=== PATIENT | male | born 1940 | race African-American/Black ===

== ENCOUNTER 2017-02-02 08:12 | Inpatient (IN) | payer MEDICARE, MEDICAID ==
[~2017-02-02] VITALS: Ht 180.3 cm; Wt 95.3 kg
[~2017-02-02 08:12] MED LIST: AMLO5TAB88; ATEN50TA; ATOR20TA; CLIN300C11; CLON0.2T PO; FURO40TA5; GLIM4TAB2 PO; LEVVL SQ; LOSA100T14 PO; METF500T3; OMEP20TA2
[2017-02-02] MEDS ORDERED: ONDANSETRON HCL 4MG/2ML VIAL IV STA (08:34)
[2017-02-02] MEDS ORDERED: SODIUM CHLORIDE 0.9% 1,000 ML IV ONE (08:34)
[2017-02-02] MEDS ORDERED: PANTOPRAZOLE 80 MG in SODIUM CHLORIDE 0.9% 100 ML IV STA (08:34)
[2017-02-02] MEDS ORDERED: PANTOPRAZOLE SODIUM 40 MG/VIAL IV STA (08:34)
[2017-02-02 09:02] LABS: BASOPHILS % 0.1 % (0.0-2.0); HEMATOCRIT. 42.3 % (42.0-52.0); LYMPHOCYTES % 7.4 % (20.0-50.0); MEAN CORPUSCULAR HEMOGLOBIN 30.8 pg (28.0-32.0); MEAN CORPUSCULAR VOLUME 92.9 fL (80.0-94.0); NEUTROPHILS % 88.5 % (40.0-76.0); PLATELET 155 x1000/uL (130-400); RED BLOOD CELL COUNT 4.56 mill/uL (4.7-6.1); RED CELL DISTRIBUTION WIDTH 15.2 % (11.6-14.6)
[2017-02-02 09:10] LABS: CHLORIDE 93 mEq/L (98-107)
[2017-02-02 09:12] LABS: INR 1.3; PARTIAL THROMBOPLASTIN TIME 25.4 sec (23.4-31.0); PROTHROMBIN TIME 13.3 sec (9.4-11.6)
[2017-02-02 09:22] LABS: CARBON DIOXIDE 31 mEq/L (21-32); ETHANOL BLOOD < 10 mg/dL; TROPONIN I 0.04 ng/mL (0.00-0.04)
[2017-02-02 09:37] LABS: *AMPHETAMINES SCREEN URINE NEGATIVE (NEGATIVE); *BARBITURATES SCREEN URINE NEGATIVE (NEGATIVE); *BENZODIAZEPINES SCREEN URINE NEGATIVE (NEGATIVE); *COCAINE SCREEN URINE NEGATIVE (NEGATIVE); CANNABINOID URINE SCREEN NEGATIVE (NEGATIVE); METHADONE URINE SCREEN NEGATIVE (NEGATIVE); OPIATES URINE SCREEN NEGATIVE (NEGATIVE); PHENCYCLIDINE URINE SCREEN NEGATIVE (NEGATIVE)
[2017-02-02] MEDS ORDERED: CLONIDINE 0.1MG TABLET PO ONE (11:30)
[2017-02-02 12:30] VITALS: BP 162/59
[2017-02-02 12:45] VITALS: BP 162/59
[2017-02-02] MEDS ORDERED: DEXTROSE 50% WATER 50ML SYRINGE IV PRN (15:15)
[2017-02-02] MEDS: ONDANSETRON HCL 4MG/2ML VIAL IV PRN (15:59)
[2017-02-02 16:00] VITALS: BP 158/62
[2017-02-02] MEDS: BLOOD SUGAR DIAGNOSTIC STRIP TEST SCH ×2 (17:20→21:20)
[2017-02-02] MEDS: INSULIN LISPRO 100 UNITS/ML SUBCUT SCH ×2 (18:09→21:26)
[2017-02-02] MEDS: METFORMIN HCL 500MG TABLET PO SCH (18:09)
[2017-02-02 20:00] VITALS: BP 134/52
[2017-02-02 20:10] LABS: CLARITY URINE CLEAR (CLEAR); COLOR URINE YELLOW (YELLOW); GLUCOSE URINE 3+ (NEGATIVE); KETONES URINE 3+ (NEGATIVE); LEUKOCYTE ESTERASE URINE NEGATIVE (NEGATIVE); NITRITE URINE NEGATIVE (NEGATIVE); OCCULT BLOOD URINE 1+ (NEGATIVE); PROTEIN URINE 3+ (NEGATIVE); SPECIFIC GRAVITY URINE 1.024 (1.005-1.030)
[2017-02-02] MEDS ORDERED: POTASSIUM CHLORIDE 20MEQ TABLET SR PO NR (21:02)
[2017-02-02] MEDS: ATORVASTATIN CALCIUM 20MG TABLET PO SCH (21:10)
[2017-02-02] MEDS: CARVEDILOL 12.5MG TABLET PO SCH (21:10)
[2017-02-02] MEDS: PANTOPRAZOLE SODIUM 40 MG/VIAL IV SCH (21:10)
[2017-02-02] MEDS: AMLODIPINE 10MG TABLET PO SCH (21:39)
[2017-02-02] MEDS ORDERED: MAGNESIUM 4 G PREMIX 100 ML IV NR (23:00)
[2017-02-03] VITALS (8 sets, daily range): BP systolic 104–189; BP diastolic 67–88
[2017-02-03] MEDS: BLOOD SUGAR DIAGNOSTIC STRIP TEST SCH ×4 (06:26→21:36)
[2017-02-03 07:06] LABS: INR 1.2; PARTIAL THROMBOPLASTIN TIME 26.8 sec (23.4-31.0)
[2017-02-03 07:16] LABS: BASOPHILS % 0.1 % (0.0-2.0); HEMATOCRIT. 41.1 % (42.0-52.0); HEMOGLOBIN. 13.7 g/dL (14.0-18.0); LYMPHOCYTES % 9.4 % (20.0-50.0); MEAN CORPUSCULAR HEMOGLOBIN 31.1 pg (28.0-32.0); MEAN CORPUSCULAR VOLUME 93.3 fL (80.0-94.0); MEAN PLATELET VOLUME 10.5 fl (7.4-10.4); MONOCYTES % 6.3 % (2.0-8.0); NEUTROPHILS % 84.2 % (40.0-76.0); PLATELET 145 x1000/uL (130-400); RED BLOOD CELL COUNT 4.41 mill/uL (4.7-6.1); RED CELL DISTRIBUTION WIDTH 15.5 % (11.6-14.6)
[2017-02-03] MEDS ORDERED: GLIMEPIRIDE 4MG TABLET PO SCH (07:20)
[2017-02-03 07:30] LABS: AMYLASE 66 IU/L (25-115); CARBON DIOXIDE 33 mEq/L (21-32); CHLORIDE 96 mEq/L (98-107); PHOSPHORUS 2.5 mg/dL (2.5-4.9)
[2017-02-03 07:33] LABS: T4 FREE 1.11 ng/dL (0.76-1.46)
[2017-02-03] MEDS ORDERED: SIMETHICONE 40 MG/0.6 ML 30ML ONE (07:47)
[2017-02-03] MEDS ORDERED: SODIUM CHLORIDE 0.9% 10ML VIAL ONE (07:47)
[2017-02-03] MEDS ORDERED: PANTOPRAZOLE SODIUM 40 MG/VIAL IV SCH (09:00)
[2017-02-03] MEDS: PANTOPRAZOLE SODIUM 40 MG/VIAL IV SCH ×2 (09:32→21:29)
[2017-02-03] MEDS: CARVEDILOL 12.5MG TABLET PO SCH ×2 (09:56→21:29)
[2017-02-03] MEDS: METFORMIN HCL 500MG TABLET PO SCH ×2 (09:56→17:40)
[2017-02-03] MEDS: FUROSEMIDE 40MG TABLET PO SCH (09:56)
[2017-02-03] MEDS: AMLODIPINE 10MG TABLET PO SCH ×2 (09:56→21:30)
[2017-02-03] MEDS: INSULIN LISPRO 100 UNITS/ML SUBCUT SCH ×4 (09:59→21:31)
[2017-02-03] MEDS ORDERED: INSULIN DETEMIR UD 100 UNITS/ML SYR SUBCUT SCH (10:00)
[2017-02-03] MEDS ORDERED: FENTANYL CITRATE/PF 50MCG/ML 2ML VIAL ONE (11:31)
[2017-02-03] MEDS ORDERED: MIDAZOLAM HCL 5 MG/5 ML VIAL ONE (11:31)
[2017-02-03] MEDS ORDERED: MIDAZOLAM HCL 5 MG/5 ML VIAL IV ONE (11:40)
[2017-02-03] MEDS ORDERED: FENTANYL CITRATE/PF 50MCG/ML 2ML VIAL IV ONE (11:41)
[2017-02-03] MEDS: SUCRALFATE 1 G/10 ML UDC PO SCH ×2 (16:52→21:29)
[2017-02-03] MEDS: POTASSIUM CHLORIDE 20MEQ TABLET SR PO SCH (16:52)
[2017-02-03] MEDS: ATORVASTATIN CALCIUM 20MG TABLET PO SCH (21:30)
[2017-02-03] MEDS: ONDANSETRON HCL 4MG/2ML VIAL IV PRN (21:32)
[2017-02-03] MEDS ORDERED: AMLODIPINE 10MG TABLET PO PRN (23:00)
[2017-02-03 23:28] LABS: CHLORIDE 98 mEq/L (98-107)
[2017-02-03 23:31] LABS: BASOPHILS % 0.3 % (0.0-2.0); HEMATOCRIT. 42.2 % (42.0-52.0); LYMPHOCYTES % 8.8 % (20.0-50.0); MEAN CORPUSCULAR HEMOGLOBIN 30.9 pg (28.0-32.0); MEAN CORPUSCULAR VOLUME 93.2 fL (80.0-94.0); MEAN PLATELET VOLUME 9.7 fl (7.4-10.4); MONOCYTES % 7.3 % (2.0-8.0); NEUTROPHILS % 83.6 % (40.0-76.0); PLATELET 129 x1000/uL (130-400); RED BLOOD CELL COUNT 4.53 mill/uL (4.7-6.1); RED CELL DISTRIBUTION WIDTH 15.1 % (11.6-14.6)
[2017-02-03 23:33] LABS: CARBON DIOXIDE 34 mEq/L (21-32); PHOSPHORUS 1.8 mg/dL (2.5-4.9)
[2017-02-04] VITALS: BP 168/82
[2017-02-04] MEDS: ONDANSETRON 4MG ODT PO SCH ×4 (00:17→17:35)
[2017-02-04] MEDS ORDERED: POTASSIUM PHOS,M-BASIC-D-BASIC 30 MMOL in DEXT 5% WATER 500 ML IV NR (03:00)
[2017-02-04 04:00] VITALS: BP 160/68
[2017-02-04] MEDS: BLOOD SUGAR DIAGNOSTIC STRIP TEST SCH ×4 (06:36→20:56)
[2017-02-04 08:01] VITALS: BP 175/84
[2017-02-04] MEDS ORDERED: POTASSIUM PHOS,M-BASIC-D-BASIC 20 MMOL in DEXT 5% WATER 243.3333 ML IV SCH (08:30)
[2017-02-04] MEDS: POTASSIUM CHLORIDE 20MEQ TABLET SR PO SCH ×2 (09:00→17:35)
[2017-02-04] MEDS: SUCRALFATE 1 G/10 ML UDC PO SCH ×4 (09:00→21:30)
[2017-02-04] MEDS: AMLODIPINE 10MG TABLET PO SCH ×2 (09:00→21:27)
[2017-02-04] MEDS: FUROSEMIDE 40MG TABLET PO SCH (09:00)
[2017-02-04] MEDS: CARVEDILOL 12.5MG TABLET PO SCH ×3 (09:00→21:28)
[2017-02-04] MEDS: PANTOPRAZOLE SODIUM 40 MG/VIAL IV SCH ×2 (09:30→21:28)
[2017-02-04] MEDS: INSULIN LISPRO 100 UNITS/ML SUBCUT SCH ×7 (10:05→21:00)
[2017-02-04] MEDS: ONDANSETRON HCL 4MG/2ML VIAL IV PRN ×2 (10:45→21:32)
[2017-02-04] MEDS: INSULIN DETEMIR UD 100 UNITS/ML SYR SUBCUT SCH ×2 (10:46→21:58)
[2017-02-04 11:59] VITALS: BP 179/66
[2017-02-04] MEDS: POTASSIUM CHLORIDE INJ 20 MEQ, MVI, ADULT NO.1 10 ML in DEXT 5%/0.45% NACL 1000ML 1,000 ML IV SCH ×3 (12:45)
[2017-02-04 14:33] LABS: CREATINE KINASE MB FRACTION 2.6 ng/mL (0.5-3.6); PHOSPHORUS 2.5 mg/dL (2.5-4.9); TROPONIN I 0.08 ng/mL (0.00-0.04)
[2017-02-04 16:00] VITALS: BP 145/61
[2017-02-04 20:00] VITALS: BP 169/72
[2017-02-04] MEDS: ATORVASTATIN CALCIUM 20MG TABLET PO SCH (21:28)
[2017-02-05] VITALS: BP 118/76
[2017-02-05] MEDS: ONDANSETRON HCL 4MG/2ML VIAL IV PRN ×2 (03:46→03:58)
[2017-02-05] MEDS: ONDANSETRON 4MG ODT PO SCH ×3 (03:53→16:50)
[2017-02-05 04:00] VITALS: BP 153/70
[2017-02-05] MEDS: DEXT 5%/0.45% NACL KCL 20MEQ/L 1,000 ML IV SCH ×2 (06:19→23:03)
[2017-02-05] MEDS: BLOOD SUGAR DIAGNOSTIC STRIP TEST SCH ×4 (07:17→21:00)
[2017-02-05 07:29] LABS: BASOPHILS % 0.1 % (0.0-2.0); EOSINOPHILS % 0.1 % (0.0-5.0); HEMATOCRIT. 45.2 % (42.0-52.0); HEMOGLOBIN. 15.4 g/dL (14.0-18.0); MEAN CORPUSCULAR HEMOGLOBIN 31.5 pg (28.0-32.0); MEAN CORPUSCULAR VOLUME 92.9 fL (80.0-94.0); MEAN PLATELET VOLUME 10.4 fl (7.4-10.4); MONOCYTES % 10.8 % (2.0-8.0); PLATELET 129 x1000/uL (130-400); RED BLOOD CELL COUNT 4.87 mill/uL (4.7-6.1)
[2017-02-05] MEDS: INSULIN LISPRO 100 UNITS/ML SUBCUT SCH ×7 (07:50→21:09)
[2017-02-05 07:51] VITALS: BP 123/78
[2017-02-05 08:01] LABS: CHLORIDE 97 mEq/L (98-107)
[2017-02-05 08:09] LABS: CARBON DIOXIDE 30 mEq/L (21-32)
[2017-02-05] MEDS: PANTOPRAZOLE SODIUM 40 MG/VIAL IV SCH ×2 (09:32→22:29)
[2017-02-05] MEDS: POTASSIUM CHLORIDE 20MEQ TABLET SR PO SCH ×2 (09:32→16:49)
[2017-02-05] MEDS: SUCRALFATE 1 G/10 ML UDC PO SCH ×4 (09:32→22:29)
[2017-02-05] MEDS: CARVEDILOL 12.5MG TABLET PO SCH (09:32)
[2017-02-05] MEDS: FUROSEMIDE 40MG TABLET PO SCH (09:32)
[2017-02-05] MEDS ORDERED: POTASSIUM PHOS,M-BASIC-D-BASIC 20 MMOL in DEXT 5% WATER 243.3333 ML IV SCH (10:00)
[2017-02-05] MEDS: INSULIN DETEMIR UD 100 UNITS/ML SYR SUBCUT SCH ×2 (10:24→22:00)
[2017-02-05 12:00] VITALS: BP 149/69
[2017-02-05] MEDS: AMLODIPINE 10MG TABLET PO SCH ×2 (12:20→21:00)
[2017-02-05 16:00] VITALS: BP 148/61
[2017-02-05] MEDS: POTASSIUM CHLORIDE INJ 20 MEQ, MVI, ADULT NO.1 10 ML in DEXT 5%/0.45% NACL 1000ML 1,000 ML IV SCH ×3 (17:50)
[2017-02-05 20:00] VITALS: BP 135/57
[2017-02-05] MEDS: ATORVASTATIN CALCIUM 20MG TABLET PO SCH (22:29)
[2017-02-06] VITALS: BP 160/86
[2017-02-06] MEDS: ONDANSETRON 4MG ODT PO SCH ×5 (00:38→23:31)
[2017-02-06] MEDS: CARVEDILOL 12.5MG TABLET PO SCH ×3 (00:42→20:17)
[2017-02-06] MEDS: AMLODIPINE 10MG TABLET PO SCH ×2 (02:19→20:17)
[2017-02-06] MEDS: ONDANSETRON HCL 4MG/2ML VIAL IV PRN (02:26)
[2017-02-06] MEDS: BLOOD SUGAR DIAGNOSTIC STRIP TEST SCH ×4 (06:11→21:21)
[2017-02-06 06:54] LABS: BASOPHILS % 0.2 % (0.0-2.0); EOSINOPHILS % 0.3 % (0.0-5.0); HEMATOCRIT. 44.4 % (42.0-52.0); HEMOGLOBIN. 15.2 g/dL (14.0-18.0); MEAN CORPUSCULAR HEMOGLOBIN 31.7 pg (28.0-32.0); MEAN CORPUSCULAR VOLUME 92.7 fL (80.0-94.0); MEAN PLATELET VOLUME 10.6 fl (7.4-10.4); MONOCYTES % 11.2 % (2.0-8.0); NEUTROPHILS % 67.3 % (40.0-76.0); PLATELET 128 x1000/uL (130-400); RED CELL DISTRIBUTION WIDTH 14.8 % (11.6-14.6)
[2017-02-06 07:30] LABS: CARBON DIOXIDE 30 mEq/L (21-32); CHLORIDE 98 mEq/L (98-107); PHOSPHORUS 2.5 mg/dL (2.5-4.9)
[2017-02-06] MEDS: INSULIN LISPRO 100 UNITS/ML SUBCUT SCH ×7 (07:50→21:00)
[2017-02-06] MEDS: PANTOPRAZOLE SODIUM 40 MG/VIAL IV SCH ×2 (08:59→20:16)
[2017-02-06] MEDS: SUCRALFATE 1 G/10 ML UDC PO SCH ×4 (08:59→20:16)
[2017-02-06] MEDS: POTASSIUM CHLORIDE 20MEQ TABLET SR PO SCH ×2 (08:59→17:34)
[2017-02-06] MEDS: FUROSEMIDE 40MG TABLET PO SCH (09:00)
[2017-02-06] MEDS: INSULIN DETEMIR UD 100 UNITS/ML SYR SUBCUT SCH ×2 (10:31→21:21)
[2017-02-06] MEDS ORDERED: POTASSIUM CHLORIDE 20MEQ TABLET SR PO ONE (11:00)
[2017-02-06] MEDS ORDERED: CLONIDINE 0.2MG TABLET PO PRN (11:00)
[2017-02-06] MEDS ORDERED: CLONIDINE 0.1MG TABLET PO PRN (11:00)
[2017-02-06] MEDS ORDERED: HYDRALAZINE 20MG/ML VIAL IV PRN (11:15)
[2017-02-06] MEDS ORDERED: DOCUSATE SODIUM 250MG CAPSULE PO PRN (12:00)
[2017-02-06] MEDS: POTASSIUM CHLORIDE INJ 20 MEQ, MVI, ADULT NO.1 10 ML in DEXT 5%/0.45% NACL 1000ML 1,000 ML IV SCH ×3 (12:32)
[2017-02-06] MEDS: LOSARTAN POTASSIUM 25 MG TABLET PO SCH ×2 (12:32→17:34)
[2017-02-06] MEDS ORDERED: POTASSIUM CHLORIDE 20MEQ TABLET SR PO NR (13:00)
[2017-02-06] MEDS: METOCLOPRAMIDE HCL 10MG/2ML VIAL IV SCH ×2 (13:31→21:17)
[2017-02-06] MEDS: DEXT 5%/0.45% NACL KCL 20MEQ/L 1,000 ML IV SCH (13:31)
[2017-02-06 16:00] VITALS: BP 156/67
[2017-02-06 20:00] VITALS: BP 136/65
[2017-02-06] MEDS: ATORVASTATIN CALCIUM 20MG TABLET PO SCH (20:17)
[2017-02-07] VITALS: BP 157/58
[2017-02-07 04:00] VITALS: BP 159/63
[2017-02-07] MEDS: METOCLOPRAMIDE HCL 10MG/2ML VIAL IV SCH ×3 (05:49→21:19)
[2017-02-07] MEDS: ONDANSETRON 4MG ODT PO SCH ×4 (05:49→23:55)
[2017-02-07] MEDS: INSULIN LISPRO 100 UNITS/ML SUBCUT SCH ×4 (05:52→17:20)
[2017-02-07] MEDS: BLOOD SUGAR DIAGNOSTIC STRIP TEST SCH ×4 (06:17→21:18)
[2017-02-07 06:38] LABS: BASOPHILS % 0.2 % (0.0-2.0); EOSINOPHILS % 0.5 % (0.0-5.0); HEMATOCRIT. 41.8 % (42.0-52.0); LYMPHOCYTES % 21.8 % (20.0-50.0); MEAN CORPUSCULAR HEMOGLOBIN 31.5 pg (28.0-32.0); MEAN CORPUSCULAR VOLUME 93.7 fL (80.0-94.0); MEAN PLATELET VOLUME 10.9 fl (7.4-10.4); MONOCYTES % 12.2 % (2.0-8.0); NEUTROPHILS % 65.3 % (40.0-76.0); PLATELET 115 x1000/uL (130-400); RED BLOOD CELL COUNT 4.46 mill/uL (4.7-6.1); RED CELL DISTRIBUTION WIDTH 14.7 % (11.6-14.6)
[2017-02-07 06:56] LABS: CARBON DIOXIDE 29 mEq/L (21-32); CHLORIDE 98 mEq/L (98-107)
[2017-02-07 07:31] VITALS: BP 172/60
[2017-02-07] MEDS: DEXT 5%/0.45% NACL KCL 20MEQ/L 1,000 ML IV SCH (08:53)
[2017-02-07] MEDS: PANTOPRAZOLE SODIUM 40 MG/VIAL IV SCH ×2 (08:56→21:17)
[2017-02-07] MEDS: CARVEDILOL 12.5MG TABLET PO SCH ×2 (08:57→21:18)
[2017-02-07] MEDS: AMLODIPINE 10MG TABLET PO SCH ×2 (08:57→21:18)
[2017-02-07] MEDS: FUROSEMIDE 40MG TABLET PO SCH (08:57)
[2017-02-07] MEDS: SUCRALFATE 1 G/10 ML UDC PO SCH ×4 (08:57→21:17)
[2017-02-07] MEDS: LOSARTAN POTASSIUM 25 MG TABLET PO SCH ×2 (08:57→18:17)
[2017-02-07] MEDS: POTASSIUM CHLORIDE 20MEQ TABLET SR PO SCH ×2 (08:58→18:18)
[2017-02-07 11:56] VITALS: BP 136/58
[2017-02-07] MEDS: INSULIN DETEMIR UD 100 UNITS/ML SYR SUBCUT SCH (12:04)
[2017-02-07] MEDS ORDERED: INSULIN LISPRO 100 UNITS/ML SUBCUT SCH (12:20)
[2017-02-07] MEDS: INSULIN LISPRO (LOW DOSE) 100 UNITS/ML SUBCUT SCH ×2 (13:28→16:56)
[2017-02-07 15:21] VITALS: BP 130/55
[2017-02-07] MEDS: POTASSIUM CHLORIDE INJ 20 MEQ, MVI, ADULT NO.1 10 ML in DEXT 5%/0.45% NACL 1000ML 1,000 ML IV SCH ×3 (18:17)
[2017-02-07 20:00] VITALS: BP 152/64
[2017-02-07] MEDS: ATORVASTATIN CALCIUM 20MG TABLET PO SCH (21:18)
[2017-02-07] MEDS ORDERED: INSULIN DETEMIR UD 100 UNITS/ML SYR SUBCUT SCH (22:00)
[2017-02-08] VITALS: BP 138/49
[2017-02-08 04:00] VITALS: BP 150/63
[2017-02-08] MEDS: METOCLOPRAMIDE HCL 10MG/2ML VIAL IV SCH (05:04)
[2017-02-08] MEDS: ONDANSETRON 4MG ODT PO SCH ×2 (05:04→12:30)
[2017-02-08] MEDS: INSULIN LISPRO 100 UNITS/ML SUBCUT SCH ×2 (06:06→12:32)
[2017-02-08] MEDS: BLOOD SUGAR DIAGNOSTIC STRIP TEST SCH ×2 (06:07→11:49)
[2017-02-08 06:56] LABS: BASOPHILS % 0.2 % (0.0-2.0); HEMATOCRIT. 37.5 % (42.0-52.0); HEMOGLOBIN. 12.5 g/dL (14.0-18.0); MEAN CORPUSCULAR HEMOGLOBIN 31.1 pg (28.0-32.0); MEAN CORPUSCULAR VOLUME 93.4 fL (80.0-94.0); MONOCYTES % 11.7 % (2.0-8.0); NEUTROPHILS % 71.1 % (40.0-76.0); PLATELET 105 x1000/uL (130-400); RED BLOOD CELL COUNT 4.02 mill/uL (4.7-6.1); RED CELL DISTRIBUTION WIDTH 14.9 % (11.6-14.6)
[2017-02-08 07:39] VITALS: BP 134/50
[2017-02-08 08:01] LABS: CARBON DIOXIDE 26 mEq/L (21-32); CHLORIDE 99 mEq/L (98-107)
[2017-02-08] MEDS: LOSARTAN POTASSIUM 25 MG TABLET PO SCH (08:38)
[2017-02-08] MEDS: POTASSIUM CHLORIDE 20MEQ TABLET SR PO SCH (08:38)
[2017-02-08] MEDS: SUCRALFATE 1 G/10 ML UDC PO SCH (08:38)
[2017-02-08] MEDS: PANTOPRAZOLE SODIUM 40 MG/VIAL IV SCH (08:38)
[2017-02-08] MEDS: FUROSEMIDE 40MG TABLET PO SCH (08:39)
[2017-02-08] MEDS: AMLODIPINE 10MG TABLET PO SCH (08:39)
[2017-02-08] MEDS: CARVEDILOL 12.5MG TABLET PO SCH (08:41)
[2017-02-08] MEDS: INSULIN LISPRO (LOW DOSE) 100 UNITS/ML SUBCUT SCH ×2 (09:07→12:33)
[2017-02-08] MEDS: INSULIN DETEMIR UD 100 UNITS/ML SYR SUBCUT SCH (09:08)
[2017-02-08 11:12] VITALS: BP 112/51
[2017-02-08] MEDS: POTASSIUM CHLORIDE INJ 20 MEQ, MVI, ADULT NO.1 10 ML in DEXT 5%/0.45% NACL 1000ML 1,000 ML IV SCH ×3 (12:35)
[2017-02-08 13:50] VITALS: BP 112/51
== END 2017-02-08 14:30 | disposition home health service (06) | DRG 381 ==
LOC: ER 08:12 → 6WST 09:21 → EDBEDREQ 09:24 → EDBEDREQTM 09:24 → ENRESERV 11:13
PROVIDERS: ADMIT Internal Medicine; ATTEND Internal Medicine
PROC: 0DJ68ZZ Inspection of Stomach, Via Natural or Artificial Opening Endoscopic (ICD-10-PCS; principal; 2017-02-03 13:30)
DX: K22.11 Ulcer of esophagus with bleeding (principal); I48.92 Unspecified atrial flutter; E11.40 Type 2 diabetes mellitus with diabetic neuropathy, unspecified; I11.9 Hypertensive heart disease without heart failure; E11.51 Type 2 diabetes mellitus with diabetic peripheral angiopathy without gangrene; E11.622 Type 2 diabetes mellitus with other skin ulcer; J98.11 Atelectasis; L97.919 Non-pressure chronic ulcer of unspecified part of right lower leg with unspecified severity; L97.929 Non-pressure chronic ulcer of unspecified part of left lower leg with unspecified severity; E11.319 Type 2 diabetes mellitus with unspecified diabetic retinopathy without macular edema; E11.65 Type 2 diabetes mellitus with hyperglycemia; E87.6 Hypokalemia; I25.10 Atherosclerotic heart disease of native coronary artery without angina pectoris; D72.829 Elevated white blood cell count, unspecified; E11.649 Type 2 diabetes mellitus with hypoglycemia without coma; E78.00 Pure hypercholesterolemia, unspecified; E78.5 Hyperlipidemia, unspecified; E83.39 Other disorders of phosphorus metabolism; I47.9 Paroxysmal tachycardia, unspecified; I87.2 Venous insufficiency (chronic) (peripheral); I87.8 Other specified disorders of veins; K29.60 Other gastritis without bleeding; K44.9 Diaphragmatic hernia without obstruction or gangrene; K59.00 Constipation, unspecified; K64.4 Residual hemorrhoidal skin tags; K64.8 Other hemorrhoids; L30.9 Dermatitis, unspecified; N28.9 Disorder of kidney and ureter, unspecified; Z79.4 Long term (current) use of insulin; Z79.84 Long term (current) use of oral hypoglycemic drugs; Z79.899 Other long term (current) drug therapy; Z82.49 Family history of ischemic heart disease and other diseases of the circulatory system; Z83.3 Family history of diabetes mellitus; Z89.412 Acquired absence of left great toe; Z91.19 Patient's noncompliance with other medical treatment and regimen; Z95.0 Presence of cardiac pacemaker; Z88.0 Allergy status to penicillin; Z88.8 Allergy status to other drugs, medicaments and biological substances; Z90.49 Acquired absence of other specified parts of digestive tract; Z89.422 Acquired absence of other left toe(s); Z89.421 Acquired absence of other right toe(s)
CPT/HCPCS: 36415; 71010; 74000; 74176; 80048; 80051; 80053; 80069; 80305; 81001; 82150; 82550; 82553; 82962; 83690; 83735; 83880; 84100; 84132; 84439; 84443; 84484; 84550; 85025; 85610; 85651; 85730; 86677; 86850; 86900; 87086; 93005; 96361; 96374; 96375; 99152; 99291; A4216; C1893; C9113; G0482; J1815; J2250; J2405; J2765; J3010; J3475; J3480; J3490; J7030; J7050; J7060; Q0162